=== PATIENT | female | born 1955 | race African-American/Black ===

== ENCOUNTER 2018-02-15 09:02 | Inpatient (IN) | payer MEDICAID, OTHER ==
[~2018-02-15] VITALS: Ht 154.9 cm; Wt 49.5 kg
[2018-02-15] MEDS ORDERED: HYDROCODONE/ACETAMINOPHEN 5/325MG TABLET PO ONE (11:45)
[2018-02-15 12:08] LABS: BASOPHILS % 1.1 % (0.0-2.0); EOSINOPHILS % 1.6 % (0.0-5.0); HEMATOCRIT. 37.7 % (36.0-48.0); HEMOGLOBIN. 12.3 g/dL (12.0-16.0); MEAN CORPUSCULAR VOLUME 76.8 fL (81.0-99.0); MEAN PLATELET VOLUME 8.6 fl (7.4-10.4); MONOCYTES % 9.4 % (2.0-8.0); NEUTROPHILS % 66.9 % (40.0-76.0); PLATELET 216 x1000/uL (130-400); RED BLOOD CELL COUNT 4.92 mill/uL (4.2-5.4); RED CELL DISTRIBUTION WIDTH 16.1 % (11.6-14.6)
[2018-02-15 12:13] LABS: CHLORIDE 100 mEq/L (98-107)
[2018-02-15 12:30] LABS: CLARITY URINE CLEAR (CLEAR); COLOR URINE YELLOW (YELLOW); KETONES URINE NEGATIVE (NEGATIVE); LEUKOCYTE ESTERASE URINE NEGATIVE (NEGATIVE); NITRITE URINE NEGATIVE (NEGATIVE); OCCULT BLOOD URINE NEGATIVE (NEGATIVE); PROTEIN URINE NEGATIVE (NEGATIVE); SPECIFIC GRAVITY URINE 1.005 (1.005-1.030); UROBILINOGEN URINE 0.2 E.U./dL (0.2-1.0)
[2018-02-15] MEDS ORDERED: MORPHINE SULFATE 4 MG/ML CPJ (NOT FOR IM USE) IV ONE (14:45)
[2018-02-15] MEDS ORDERED: HYDRALAZINE 20MG/ML VIAL IV ONE ×2 (14:45→16:30)
[2018-02-15] MEDS ORDERED: LABETALOL 5MG/ML SYR 20 MG/4 ML SYRINGE IV ONE (17:15)
[2018-02-15 17:16] LABS: OPIATES URINE SCREEN NEGATIVE (NEGATIVE)
[2018-02-15 17:17] LABS: *AMPHETAMINES SCREEN URINE NEGATIVE (NEGATIVE); *BARBITURATES SCREEN URINE NEGATIVE (NEGATIVE); *BENZODIAZEPINES SCREEN URINE NEGATIVE (NEGATIVE); *COCAINE SCREEN URINE NEGATIVE (NEGATIVE); CANNABINOID URINE SCREEN NEGATIVE (NEGATIVE); METHADONE URINE SCREEN NEGATIVE (NEGATIVE); PHENCYCLIDINE URINE SCREEN PRESUMTIVE POSITIVE (NEGATIVE)
[2018-02-15] MEDS ORDERED: ACETAMINOPHEN 650MG/20.3ML UDC GT PRN (17:45)
[2018-02-15] MEDS ORDERED: ACETAMINOPHEN 325MG TABLET PO PRN (17:45)
[2018-02-15] MEDS ORDERED: ONDANSETRON HCL 4MG/2ML INJ IV PRN (17:45)
[2018-02-15] MEDS ORDERED: ACETAMINOPHEN 650MG SUPP PR PRN (17:45)
[2018-02-15] MEDS ORDERED: NICARDIPINE 100 MG in SODIUM CHLORIDE 0.9% 60 ML IV PRN (18:45)
[2018-02-15] MEDS ORDERED: NICARDIPINE 40MG/200ML PREMIX 200 ML IV PRN ×2 (19:00→22:15)
[2018-02-15 19:05] LABS: VITAMIN B12 SERUM 1078 pg/mL (211-911)
[2018-02-15 19:19] LABS: FOLIC ACID (FOLATE) SERUM > 20.00 ng/mL (>5.38)
[2018-02-15 20:00] VITALS: BP 192/111
[2018-02-15 20:27] LABS: AMMONIA 13 uMol/L (<32)
[2018-02-15 22:00] VITALS: BP 175/93
[2018-02-15] MEDS: HYDROCODONE/ACETAMINOPHEN 5/325MG TABLET PO PRN (22:35)
[2018-02-15] MEDS ORDERED: POTASSIUM CHLORIDE 20MEQ TABLET SR PO NR (23:45)
[2018-02-16] VITALS (17 sets, daily range): BP systolic 131–193; BP diastolic 72–109
[2018-02-16] MEDS: NIFEDIPINE XL 60MG TAB PO SCH ×2 (00:10→08:27)
[2018-02-16] MEDS: FOLIC ACID 1MG TABLET PO SCH (08:27)
[2018-02-16] MEDS: MULTIVITAMINS,THER W-MINERALS TABLET PO SCH (08:27)
[2018-02-16] MEDS: THIAMINE HCL 100MG TABLET PO SCH (08:28)
[2018-02-16 08:33] LABS: BASOPHILS % 0.5 % (0.0-2.0); EOSINOPHILS % 1.1 % (0.0-5.0); HEMATOCRIT. 37.4 % (36.0-48.0); LYMPHOCYTES % 19.5 % (20.0-50.0); MEAN CORPUSCULAR HEMOGLOBIN 24.5 pg (28.0-32.0); MEAN PLATELET VOLUME 9.3 fl (7.4-10.4); MONOCYTES % 10.1 % (2.0-8.0); NEUTROPHILS % 68.8 % (40.0-76.0); PLATELET 233 x1000/uL (130-400); RED BLOOD CELL COUNT 4.91 mill/uL (4.2-5.4); RED CELL DISTRIBUTION WIDTH 15.8 % (11.6-14.6)
[2018-02-16 08:55] LABS: CHLORIDE 104 mEq/L (98-107)
[2018-02-16 09:04] LABS: CREATINE KINASE MB FRACTION 2.2 ng/mL (0.5-3.6)
[2018-02-16 09:06] LABS: LDL CHOLESTEROL 74 mg/dL (5-100)
[2018-02-16 09:07] LABS: CREATINE KINASE 200 IU/L (26-192)
[2018-02-16 09:09] LABS: HDL CHOLESTEROL 56 mg/dL (40-59)
[2018-02-16 09:10] LABS: T4 FREE 1.28 ng/dL (0.76-1.46)
[2018-02-16] MEDS ORDERED: IOHEXOL-350 100 ML BOTTLE ONE (10:36)
[2018-02-16 12:32] LABS: AMMONIA 14 uMol/L (<32)
[2018-02-16 12:36] LABS: T4 FREE 1.21 ng/dL (0.76-1.46)
[2018-02-16] MEDS: CLONIDINE 0.1MG TABLET PO PRN (13:00)
[2018-02-16] MEDS ORDERED: NA PHOS,M-B/NA PHOS,DI-BA ENEMA 118ML PR SCH (14:00)
[2018-02-16] MEDS ORDERED: BISACODYL 10MG SUPP PR PRN (14:00)
[2018-02-16] MEDS: DOCUSATE SODIUM 100MG CAPSULE PO SCH (14:17)
[2018-02-16] MEDS: ENOXAPARIN 40MG/0.4ML SYR SUBCUT SCH (14:18)
[2018-02-16 15:49] LABS: CREATINE KINASE 243 IU/L (26-192)
[2018-02-16 15:50] LABS: CREATINE KINASE MB FRACTION 2.7 ng/mL (0.5-3.6)
[2018-02-17] VITALS (16 sets, daily range): BP systolic 119–163; BP diastolic 78–140
[2018-02-17] MEDS: HYDROCODONE/ACETAMINOPHEN 5/325MG TABLET PO PRN ×2 (00:43→19:36)
[2018-02-17 02:04] LABS: CREATINE KINASE MB FRACTION 2.5 ng/mL (0.5-3.6)
[2018-02-17 06:57] LABS: PHOSPHORUS 3.8 mg/dL (2.5-4.9)
[2018-02-17 06:58] LABS: BASOPHILS % 0.9 % (0.0-2.0); EOSINOPHILS % 2.1 % (0.0-5.0); HEMATOCRIT. 34.2 % (36.0-48.0); HEMOGLOBIN. 11.1 g/dL (12.0-16.0); LYMPHOCYTES % 30.9 % (20.0-50.0); MEAN CORPUSCULAR HEMOGLOBIN 24.7 pg (28.0-32.0); MEAN CORPUSCULAR VOLUME 76.3 fL (81.0-99.0); MEAN PLATELET VOLUME 8.9 fl (7.4-10.4); MONOCYTES % 11.5 % (2.0-8.0); NEUTROPHILS % 54.6 % (40.0-76.0); PLATELET 205 x1000/uL (130-400); RED BLOOD CELL COUNT 4.48 mill/uL (4.2-5.4)
[2018-02-17 07:02] LABS: CREATINE KINASE MB FRACTION 2.5 ng/mL (0.5-3.6)
[2018-02-17] MEDS: MULTIVITAMINS,THER W-MINERALS TABLET PO SCH (08:08)
[2018-02-17] MEDS: FOLIC ACID 1MG TABLET PO SCH (08:08)
[2018-02-17] MEDS: THIAMINE HCL 100MG TABLET PO SCH (08:09)
[2018-02-17] MEDS: DOCUSATE SODIUM 100MG CAPSULE PO SCH (08:09)
[2018-02-17] MEDS: NIFEDIPINE XL 60MG TAB PO SCH (08:09)
[2018-02-17] MEDS: ENOXAPARIN 40MG/0.4ML SYR SUBCUT SCH (13:14)
[2018-02-18] VITALS (19 sets, daily range): BP systolic 130–180; BP diastolic 41–100
[2018-02-18] MEDS: THIAMINE HCL 100MG TABLET PO SCH (07:56)
[2018-02-18] MEDS: MULTIVITAMINS,THER W-MINERALS TABLET PO SCH (07:56)
[2018-02-18] MEDS: FOLIC ACID 1MG TABLET PO SCH (07:56)
[2018-02-18] MEDS: DOCUSATE SODIUM 100MG CAPSULE PO SCH (07:56)
[2018-02-18] MEDS: NIFEDIPINE XL 60MG TAB PO SCH (07:57)
[2018-02-18] MEDS: CLONIDINE 0.1MG TABLET PO PRN (11:25)
[2018-02-18] MEDS: ENOXAPARIN 40MG/0.4ML SYR SUBCUT SCH (13:08)
[2018-02-19] VITALS (12 sets, daily range): BP systolic 146–167; BP diastolic 70–98
[2018-02-19 06:35] LABS: HEMATOCRIT 38.4 % (36.0-48.0); HEMOGLOBIN 12.4 g/dL (12.0-16.0); MEAN CORPUSCULAR HEMOGLOBIN 24.8 pg (28.0-32.0); MEAN CORPUSCULAR VOLUME 76.6 fL (81.0-99.0); PLATELET 218 x1000/uL (130-400); RED BLOOD CELL COUNT 5.01 mill/uL (4.2-5.4); RED CELL DISTRIBUTION WIDTH 15.5 % (11.6-14.6)
[2018-02-19] MEDS: DOCUSATE SODIUM 100MG CAPSULE PO SCH (08:25)
[2018-02-19] MEDS: MULTIVITAMINS,THER W-MINERALS TABLET PO SCH (08:26)
[2018-02-19] MEDS: NIFEDIPINE XL 60MG TAB PO SCH (08:29)
[2018-02-19] MEDS: FOLIC ACID 1MG TABLET PO SCH (08:30)
[2018-02-19] MEDS: THIAMINE HCL 100MG TABLET PO SCH (08:30)
[2018-02-19] MEDS: HYDROCODONE/ACETAMINOPHEN 5/325MG TABLET PO PRN (08:40)
[2018-02-19] MEDS: ENOXAPARIN 40MG/0.4ML SYR SUBCUT SCH (12:36)
[2018-02-20] VITALS (13 sets, daily range): BP systolic 130–168; BP diastolic 76–107
[2018-02-20] MEDS: CLONIDINE 0.1MG TABLET PO PRN (04:20)
[2018-02-20 06:48] LABS: BASOPHILS % 1.5 % (0.0-2.0); EOSINOPHILS % 4.2 % (0.0-5.0); HEMATOCRIT. 35.5 % (36.0-48.0); HEMOGLOBIN. 11.6 g/dL (12.0-16.0); MEAN CORPUSCULAR HEMOGLOBIN 25.1 pg (28.0-32.0); MEAN CORPUSCULAR VOLUME 76.6 fL (81.0-99.0); MONOCYTES % 11.7 % (2.0-8.0); NEUTROPHILS % 53.6 % (40.0-76.0); PLATELET 253 x1000/uL (130-400); RED BLOOD CELL COUNT 4.63 mill/uL (4.2-5.4); RED CELL DISTRIBUTION WIDTH 15.8 % (11.6-14.6)
[2018-02-20] MEDS: THIAMINE HCL 100MG TABLET PO SCH (08:30)
[2018-02-20] MEDS: FOLIC ACID 1MG TABLET PO SCH (08:30)
[2018-02-20] MEDS: MULTIVITAMINS,THER W-MINERALS TABLET PO SCH (08:30)
[2018-02-20] MEDS: NIFEDIPINE XL 60MG TAB PO SCH (08:35)
[2018-02-20] MEDS: DOCUSATE SODIUM 100MG CAPSULE PO SCH (08:36)
[2018-02-20] MEDS: ENOXAPARIN 30MG/0.3ML SYR SUBCUT SCH (08:36)
[2018-02-20] MEDS: HYDRALAZINE HCL 25MG TABLET PO SCH ×2 (10:46→21:13)
[2018-02-20 12:42] LABS: CREATINE KINASE 124 IU/L (26-192)
[2018-02-21] VITALS (7 sets, daily range): BP systolic 119–166; BP diastolic 67–106
[2018-02-21 06:32] LABS: BASOPHILS % 1.1 % (0.0-2.0); EOSINOPHILS % 4.6 % (0.0-5.0); HEMATOCRIT. 36.3 % (36.0-48.0); HEMOGLOBIN. 11.7 g/dL (12.0-16.0); LYMPHOCYTES % 35.8 % (20.0-50.0); MEAN CORPUSCULAR HEMOGLOBIN 24.8 pg (28.0-32.0); MEAN CORPUSCULAR VOLUME 76.9 fL (81.0-99.0); MEAN PLATELET VOLUME 8.9 fl (7.4-10.4); MONOCYTES % 13.5 % (2.0-8.0); PLATELET 254 x1000/uL (130-400); RED BLOOD CELL COUNT 4.72 mill/uL (4.2-5.4); RED CELL DISTRIBUTION WIDTH 15.7 % (11.6-14.6)
[2018-02-21] MEDS: MULTIVITAMINS,THER W-MINERALS TABLET PO SCH (09:25)
[2018-02-21] MEDS: HYDRALAZINE HCL 25MG TABLET PO SCH (09:26)
[2018-02-21] MEDS: ENOXAPARIN 30MG/0.3ML SYR SUBCUT SCH (09:26)
[2018-02-21] MEDS: FOLIC ACID 1MG TABLET PO SCH (09:26)
[2018-02-21] MEDS: DOCUSATE SODIUM 100MG CAPSULE PO SCH (09:26)
[2018-02-21] MEDS: NIFEDIPINE XL 60MG TAB PO SCH (09:26)
[2018-02-21] MEDS: THIAMINE HCL 100MG TABLET PO SCH (09:28)
[2018-02-21] MEDS ORDERED: NIFE60TA64 PO (10:47)
[2018-02-21] MEDS ORDERED: NIFEDIPINE XL 60MG TAB PO SCH (17:00)
[2018-02-24 09:12] LABS: ANTI-NUCLEAR ANTIBODIES DIRECT Negative (Negative)
== END 2018-02-21 14:01 | disposition home health service (06) | DRG 52 ==
LOC: ER 09:02 → EDBEDREQ 16:42 → 3WST 17:04 → EDBEDREQ 17:08 → EDBEDREQTM 17:08 → EDBEDREQSVC 17:08 → EDBEDREQ 17:13 → CANRESERV 17:56 → ENRESERV 17:56 → 3WST 02-16 17:35
PROVIDERS: ADMIT Internal Medicine; ATTEND Internal Medicine
PROC: 4A00X4Z Measurement of Central Nervous Electrical Activity, External Approach (ICD-10-PCS; principal; 2018-02-16)
DX: G92 Toxic encephalopathy (principal); N17.0 Acute kidney failure with tubular necrosis; M94.0 Chondrocostal junction syndrome [Tietze]; E87.6 Hypokalemia; F17.200 Nicotine dependence, unspecified, uncomplicated; G89.29 Other chronic pain; M54.9 Dorsalgia, unspecified; K59.00 Constipation, unspecified; F15.10 Other stimulant abuse, uncomplicated; D64.9 Anemia, unspecified; D72.829 Elevated white blood cell count, unspecified; J44.9 Chronic obstructive pulmonary disease, unspecified; I11.9 Hypertensive heart disease without heart failure; F16.10 Hallucinogen abuse, uncomplicated; Z91.018 Allergy to other foods; Z88.0 Allergy status to penicillin; Z88.6 Allergy status to analgesic agent; Z88.5 Allergy status to narcotic agent
CPT/HCPCS: 36415; 71045; 71275; 74174; 76770; 80048; 80061; 80305; 82140; 82550; 82553; 82607; 82746; 83036; 83735; 83880; 84100; 84439; 84443; 84481; 84484; 85027; 85379; 86038; 86160; 92610; 93005; 93306; 93970; 96374; 96375; 96376; 97162; 97166; 97535; 99285; C1893; G0482; J0360; J1650; J2270; J3490; J7030; Q9967

== ENCOUNTER 2023-11-22 18:40 | Inpatient (IN) | payer MEDICARE, MEDICAID ==
[~2023-11-22] VITALS: Ht 124.5 cm; Wt 52.7 kg
[~2023-11-22 18:40] MED LIST: AMLO10TA80 PO; CLOP-31 PO; GABA-529 PO; HYDR25TA PO; KEPP250 MT; LACO100T2 PO; LIP40 PO; SENN-312 GT
[2023-11-22] MEDS ORDERED: KEPP250 MT (20:34)
[2023-11-23] MEDS: AMLODIPINE 5MG TABLET PO ONE (02:09)
[2023-11-23] MEDS ORDERED: ONDANSETRON HCL 4MG/2ML INJ IV PRN (03:45)
[2023-11-23] MEDS ORDERED: HYDRALAZINE 20MG/ML VIAL IV PRN (03:45)
[2023-11-23] MEDS ORDERED: NON FORMULARY PATIENT HOME MED PEG SCH (03:45)
[2023-11-23] MEDS ORDERED: IPRATROPIUM/ALBUTEROL 0.5-3(2.5)MG/3ML NEB NEB PRN (03:45)
[2023-11-23] MEDS ORDERED: ACETAMINOPHEN 650MG/20.3ML UDC GT PRN ×2 (03:45)
[2023-11-23] MEDS ORDERED: DIPHENHYDRAMINE 50MG/ML VIAL IV PRN (03:45)
[2023-11-23 06:09] LABS: CHLORIDE 105 mEq/L (98-107); POTASSIUM 4.2 mEq/L (3.5-5.1); SODIUM 142 mEq/L (136-145)
[2023-11-23 06:10] LABS: CARBON DIOXIDE 25 mEq/L (21-32)
[2023-11-23 06:11] LABS: CALCIUM 10.5 mg/dL (8.7-10.4)
[2023-11-23 06:15] LABS: CREATININE 0.9 mg/dL (0.6-1.0); GLUCOSE 114 mg/dL (70-105); UREA NITROGEN BLOOD 13 mg/dL (9-23)
[2023-11-23 06:17] LABS: ALANINE AMINOTRANSFERASE 46 IU/L (10-49); ALBUMIN 5.1 g/dL (3.2-4.8); ASPARTATE AMINOTRANSFERASE 47 IU/L (<34)
[2023-11-23 06:18] LABS: BILIRUBIN TOTAL 0.5 mg/dL (0.1-1.0); PROTEIN TOTAL 8.9 g/dL (6.0-8.3)
[2023-11-23 06:36] LABS: HEMATOCRIT 43.7 % (36.0-48.0); HEMOGLOBIN 13.8 g/dL (12.0-16.0); MEAN CORPUSCULAR HEMOGLOBIN 23.8 pg (28.0-32.0); MEAN CORPUSCULAR HGB CONC 31.7 g/dL (31.0-37.0); MEAN CORPUSCULAR VOLUME 75.1 fL (81.0-99.0); PLATELET 299 x1000/uL (130-400); RED BLOOD CELL COUNT 5.82 mill/uL (4.2-5.4); RED CELL DISTRIBUTION WIDTH 17.9 % (11.6-14.6); WHITE BLOOD COUNT 11.2 x1000/uL (4.5-11.0)
[2023-11-23] MEDS ORDERED: LACOSAMIDE 100MG/10ML ORAL SOLN PEG SCH (09:00)
[2023-11-23] MEDS: CLOPIDOGREL 75MG TABLET PEG SCH (15:05)
[2023-11-23] MEDS: HYDRALAZINE HCL 25MG TABLET PEG SCH (15:06)
[2023-11-23] MEDS: METOPROLOL TARTRATE 50MG TABLET PEG SCH (15:06)
[2023-11-23] MEDS: AMLODIPINE 5MG TABLET PEG SCH (15:07)
[2023-11-23] MEDS: LEVETIRACETAM 500MG/5ML CUP PEG SCH (15:09)
[2023-11-23] MEDS: ENOXAPARIN 40MG/0.4ML SYR SUBCUT SCH (15:09)
[2023-11-23] MEDS: LACOSAMIDE 100MG/10ML ORAL SOLN PEG SCH (15:09)
[2023-11-23] MEDS: GABAPENTIN SOLN 300MG/6ML UDC GT SCH (15:09)
[2023-11-23 17:10] VITALS: PULSE 92; RESP 18; TEMP 98.6
[2023-11-23 17:30] VITALS: BP 136/63; PULSE 92; RESP 18; TEMP 97.5
[2023-11-23 20:00] VITALS: BP 145/81; PULSE 61; RESP 16; TEMP 98.7
[2023-11-23] MEDS: ATORVASTATIN CALCIUM 40MG TABLET PEG SCH (21:36)
[2023-11-23] MEDS: SODIUM CHLORIDE 0.9% 3ML FLUSH IVF SCH (21:38)
[2023-11-24] VITALS (7 sets, daily range): BP systolic 114–153; BP diastolic 58–107; PULSE 68–98; RESP 16–19; TEMP 97.4–98.6; O2SAT 96
[2023-11-24] MEDS: GABAPENTIN SOLN 300MG/6ML UDC GT SCH (13:34)
[2023-11-24] MEDS: CLONIDINE 0.1MG TABLET PEG PRN (23:41)
[2023-11-25] VITALS: BP 132/66; PULSE 90; RESP 17; TEMP 98.8
[2023-11-25 04:00] VITALS: BP 143/67; PULSE 63; RESP 19; TEMP 98.6
[2023-11-25 08:00] VITALS: BP 114/72; PULSE 81; RESP 18; TEMP 97
[2023-11-25 09:02] VITALS: PULSE 81
== END 2023-11-25 13:00 | disposition home or self-care (01) | DRG 53 ==
LOC: ER 18:40 → EDBEDREQ 11-23 02:19 → 7WST 11-23 17:34
PROVIDERS: ADMIT Internal Medicine; ATTEND Internal Medicine
DX: G40.909 Epilepsy, unspecified, not intractable, without status epilepticus (principal); R47.01 Aphasia; F03.90 Unspecified dementia, unspecified severity, without behavioral disturbance, psychotic disturbance, mood disturbance, and anxiety; E11.9 Type 2 diabetes mellitus without complications; I10 Essential (primary) hypertension; Z86.73 Personal history of transient ischemic attack (TIA), and cerebral infarction without residual deficits; Z88.6 Allergy status to analgesic agent; Z88.0 Allergy status to penicillin
CPT/HCPCS: 36415; 80053; 80339; 82962; 85027; 99285; J0360; J1650

== ENCOUNTER 2025-02-16 13:42 | Inpatient (IN) | payer MEDICARE, MEDICAID ==
[~2025-02-16] VITALS: Ht 162.6 cm; Wt 63.0 kg
[~2025-02-16 13:42] MED LIST changes: -AMLO10TA80 PO; +AMLO5TAB88 PO; -HYDR25TA PO; -KEPP250 MT; +LEVE500S9 PO; -LIP40 PO; +LORA-250 SL; +METO-539 PO; +POLY510P31 PO; +PRAV40TA58 PO; -SENN-312 GT
[2025-02-16 13:43] VITALS: O2SAT 97
[2025-02-16] MEDS: LORAZEPAM 2MG/ML UD SYRINGE IV SCH (14:05)
[2025-02-16] MEDS: LEVETIRACETAM 1000MG PREMIX 100 ML IV ONE ×2 (14:05→14:19)
[2025-02-16] MEDS: LEVETIRACETAM 1000MG PREMIX 100 ML IV SCH (14:13)
[2025-02-16 14:56] LABS: BASOPHILS % 0.6 % (0.0-2.0); EOSINOPHILS % 1.2 % (0.0-5.0); HEMATOCRIT. 39.3 % (36.0-48.0); HEMOGLOBIN. 12.5 g/dL (12.0-16.0); LYMPHOCYTES % 15.7 % (20.0-50.0); MEAN PLATELET VOLUME 9.6 fl (7.4-10.4); MONOCYTES % 8.5 % (2.0-8.0); NEUTROPHILS % 74.0 % (40.0-76.0); PLATELET 246 x1000/uL (130-400); RED BLOOD CELL COUNT 5.26 mill/uL (4.2-5.4); RED CELL DISTRIBUTION WIDTH 16.6 % (11.6-14.6)
[2025-02-16 15:04] LABS: CREATININE 1.1 mg/dL (0.6-1.0); UREA NITROGEN BLOOD 15 mg/dL (9-23)
[2025-02-16 15:06] LABS: ASPARTATE AMINOTRANSFERASE 37 IU/L (<34); BILIRUBIN DIRECT 0.2 mg/dL (<=3.0); BILIRUBIN TOTAL 0.8 mg/dL (0.1-1.0); PROTEIN TOTAL 8.4 g/dL (6.0-8.3)
[2025-02-16] MEDS ORDERED: ONDANSETRON HCL 4MG/2ML INJ IV PRN (17:30)
[2025-02-16] MEDS ORDERED: HYDROCODONE/ACETAMINOPHEN 5/325MG TABLET PO PRN (17:30)
[2025-02-16] MEDS ORDERED: DEXTROSE 50% WATER 50ML SYRINGE IV PRN (17:30)
[2025-02-16] MEDS ORDERED: NA PHOS,M-B/NA PHOS,DI-BA ENEMA 118ML PR PRN (17:30)
[2025-02-16] MEDS ORDERED: ACETAMINOPHEN 325MG TABLET PO PRN ×2 (17:30)
[2025-02-16] MEDS ORDERED: CLONIDINE 0.1MG TABLET PO PRN (17:30)
[2025-02-16] MEDS ORDERED: IPRATROPIUM/ALBUTEROL 0.5-3(2.5)MG/3ML NEB HHN PRN (17:30)
[2025-02-16] MEDS ORDERED: MAGNESIUM/ALUMINUM HYDROXIDE/SIMETHICONE 30ML UDC PO PRN (17:30)
[2025-02-16] MEDS ORDERED: NALOXONE HCL 0.4MG/ML VIAL IV PRN (17:45)
[2025-02-16] MEDS: SODIUM CHLORIDE 0.9% 1,000 ML IV ONE (18:06)
[2025-02-16] MEDS: BLOOD SUGAR DIAGNOSTIC STRIP TEST SCH (18:26)
[2025-02-16] MEDS: DEXT 5%/0.9% NACL 1,000 ML IV SCH (18:41)
[2025-02-16] MEDS ORDERED: LORAZEPAM 2MG/ML UD SYRINGE IV PRN (18:45)
[2025-02-16] MEDS ORDERED: LAMOTRIGINE 25MG TABLET PO SCH (18:45)
[2025-02-16] MEDS: AMLODIPINE 5MG TABLET GT SCH (20:58)
[2025-02-16] MEDS ORDERED: AMLODIPINE 5MG TABLET PO SCH (21:00)
[2025-02-16] MEDS ORDERED: LACOSAMIDE 100MG/10ML ORAL SOLN GT SCH (21:00)
[2025-02-16] MEDS ORDERED: LEVETIRACETAM 1000MG PREMIX 100 ML IV SCH (21:00)
[2025-02-16] MEDS ORDERED: LEVETIRACETAM 1,000MG in NACL 100ML PREMIX IV SCH (21:00)
[2025-02-16] MEDS: INSULIN LISPRO 100 UNITS/ML SUBCUT SCH (21:00)
[2025-02-16] MEDS ORDERED: HYDRALAZINE HCL 25MG TABLET PO SCH (22:00)
[2025-02-16 22:30] VITALS: BP 152/99; PULSE 91; RESP 18; TEMP 36.7516
[2025-02-17] VITALS: BP 185/110; PULSE 65; RESP 16; TEMP 36.1; O2SAT 95
[2025-02-17] MEDS: METOPROLOL TARTRATE 100MG TABLET GT SCH (00:59)
[2025-02-17] MEDS: LEVETIRACETAM 500MG/5ML CUP GT SCH (01:01)
[2025-02-17] MEDS: HYDRALAZINE HCL 25MG TABLET GT SCH (01:02)
[2025-02-17] MEDS: FAMOTIDINE 20MG/2ML VIAL IV SCH (01:05)
[2025-02-17] MEDS: ATORVASTATIN CALCIUM 40MG TABLET PO SCH (01:06)
[2025-02-17] MEDS: LACOSAMIDE 100MG/10ML ORAL SOLN GT SCH ×2 (03:11→13:02)
[2025-02-17 04:00] VITALS: BP 125/76; PULSE 60; RESP 18; TEMP 36.6; O2SAT 99
[2025-02-17 08:00] VITALS: BP 146/80; PULSE 77; RESP 18; TEMP 36.3; O2SAT 99
[2025-02-17] MEDS ORDERED: CLOPIDOGREL 75MG TABLET PO SCH (09:00)
[2025-02-17] MEDS ORDERED: LOSARTAN 25 MG TABLET GT SCH (09:00)
[2025-02-17] MEDS: THIAMINE HCL 100MG TABLET PO SCH (09:05)
[2025-02-17] MEDS: LAMOTRIGINE 25MG TABLET GT SCH (09:05)
[2025-02-17] MEDS: CLOPIDOGREL 75MG TABLET GT SCH (09:05)
[2025-02-17] MEDS: METOPROLOL TARTRATE 50MG TABLET GT SCH (09:06)
[2025-02-17 12:00] VITALS: BP 145/79; PULSE 61; RESP 16; TEMP 36.2; O2SAT 98
[2025-02-17 16:00] VITALS: BP 155/87; PULSE 85; RESP 16; TEMP 36.2; O2SAT 100
[2025-02-17 20:00] VITALS: BP 158/76; PULSE 98; RESP 16; TEMP 36.4; O2SAT 97
[2025-02-17 22:14] LABS: BASOPHILS % 0.3 % (0.0-2.0); EOSINOPHILS % 0.5 % (0.0-5.0); HEMATOCRIT. 38.8 % (36.0-48.0); HEMOGLOBIN. 12.1 g/dL (12.0-16.0); LYMPHOCYTES % 11.1 % (20.0-50.0); MEAN PLATELET VOLUME 9.8 fl (7.4-10.4); MONOCYTES % 6.0 % (2.0-8.0); NEUTROPHILS % 82.1 % (40.0-76.0); PLATELET 201 x1000/uL (130-400); RED BLOOD CELL COUNT 5.17 mill/uL (4.2-5.4); RED CELL DISTRIBUTION WIDTH 16.5 % (11.6-14.6)
[2025-02-17 22:25] LABS: CREATININE 0.9 mg/dL (0.6-1.0); TRIGLYCERIDE 108 mg/dL (0-150); UREA NITROGEN BLOOD 12 mg/dL (9-23)
[2025-02-17 22:26] LABS: LDL CHOLESTEROL 50 mg/dL (5-100); TROPONIN I HIGH SENSITIVITY 20 ng/L (3.0-34)
[2025-02-17] MEDS: ENOXAPARIN 40MG/0.4ML SYR SUBCUT SCH (22:28)
[2025-02-17 22:30] LABS: T4 FREE 1.35 ng/dL (0.89-1.76)
[2025-02-18] VITALS: BP 155/72; PULSE 94; RESP 16; TEMP 37.5; O2SAT 97
[2025-02-18 04:00] VITALS: BP 152/66; PULSE 87; RESP 16; TEMP 37; O2SAT 95
[2025-02-18 08:00] VITALS: BP 147/107; PULSE 98; RESP 19; TEMP 36.3; O2SAT 95
[2025-02-18] MEDS: POTASSIUM CHLORIDE 20MEQ/PACKET PO NR (09:45)
[2025-02-18 12:00] VITALS: BP 130/106; PULSE 96; RESP 19; TEMP 36.3; O2SAT 95
[2025-02-18 13:12] LABS: CREATININE 0.9 mg/dL (0.6-1.0)
[2025-02-18 13:13] LABS: UREA NITROGEN BLOOD 9 mg/dL (9-23)
[2025-02-18 16:00] VITALS: BP 170/87; PULSE 90; RESP 18; TEMP 36.3; O2SAT 99
[2025-02-18] MEDS: CLONIDINE 0.1MG TABLET GT PRN (16:20)
[2025-02-18 20:00] VITALS: BP 150/85; PULSE 88; RESP 16; TEMP 36.2; O2SAT 98
[2025-02-19] VITALS: BP 111/39; PULSE 70; RESP 16; TEMP 36.2; O2SAT 97
[2025-02-19 04:00] VITALS: BP 147/64; PULSE 84; RESP 16; TEMP 36.4; O2SAT 100
[2025-02-19 08:00] VITALS: BP 132/76; PULSE 98; RESP 18; TEMP 36.5; O2SAT 100
[2025-02-19 12:00] VITALS: BP 141/77; PULSE 107; RESP 18; TEMP 36.8; O2SAT 98
[2025-02-19 16:00] VITALS: BP 155/68; PULSE 98; RESP 18; TEMP 36.9; O2SAT 100
[2025-02-19 20:00] VITALS: BP 175/100; PULSE 120; RESP 17; TEMP 36.7; O2SAT 97
[2025-02-19 22:49] LABS: CREATININE 1.0 mg/dL (0.6-1.0); UREA NITROGEN BLOOD 8 mg/dL (9-23)
[2025-02-20] VITALS: BP 169/91; PULSE 103; RESP 17; TEMP 37.3; O2SAT 98
[2025-02-20 08:00] VITALS: BP 162/91; PULSE 95; RESP 20; TEMP 36.6; O2SAT 98
[2025-02-20] MEDS ORDERED: POTASSIUM CHLORIDE 40 MEQ in DEXT 5% WATER 230 ML IV ONE (08:30)
[2025-02-20] MEDS ORDERED: HYDRALAZINE 20MG/ML VIAL IV ONE (08:30)
[2025-02-20] MEDS ORDERED: KCL 20MEQ/100ML X 2 FOR TOTAL KCL 40MEQ/200ML IV SCH (09:00)
[2025-02-20] MEDS: LISINOPRIL 40MG TABLET PO SCH (10:10)
[2025-02-20] MEDS: HYDRALAZINE 10 MG in SODIUM CHLORIDE 0.9% 49.5 ML IV NR (10:11)
[2025-02-20] MEDS: POTASSIUM CHLORIDE 20MEQ/PACKET PO NR (10:45)
[2025-02-20 10:54] VITALS: BP 143/84; PULSE 85; RESP 18; TEMP 97.8
== END 2025-02-20 11:38 | disposition home health service (06) | DRG 100 ==
LOC: ER 13:42 → EDBEDREQTM 16:46 → EDBEDREQ 16:46 → ENRESERV 20:37 → 5WST 22:08 → 7EST 02-20 01:02
PROVIDERS: ADMIT Hospitalist; ATTEND Hospitalist
DX: G40.409 Other generalized epilepsy and epileptic syndromes, not intractable, without status epilepticus (principal); N17.0 Acute kidney failure with tubular necrosis; R53.2 Functional quadriplegia; I16.9 Hypertensive crisis, unspecified; I69.351 Hemiplegia and hemiparesis following cerebral infarction affecting right dominant side; E78.5 Hyperlipidemia, unspecified; R13.10 Dysphagia, unspecified; R73.03 Prediabetes; D63.8 Anemia in other chronic diseases classified elsewhere; R32 Unspecified urinary incontinence; F03.90 Unspecified dementia, unspecified severity, without behavioral disturbance, psychotic disturbance, mood disturbance, and anxiety; Z93.1 Gastrostomy status; Z74.01 Bed confinement status; Z79.02 Long term (current) use of antithrombotics/antiplatelets; Z88.0 Allergy status to penicillin; Z88.5 Allergy status to narcotic agent; Z88.6 Allergy status to analgesic agent
CPT/HCPCS: 36415; 71045; 80048; 80061; 80076; 80320; 80339; 82550; 82962; 83735; 84439; 84443; 84484; 85025; 93005; 94640; 99291; A4606; J0360; J1308; J1650; J1953; J2060; G0480